=== PATIENT | female | born 1995 | race Two or more races ===

== ENCOUNTER 2023-09-22 11:22 | Emergency (ER) | payer OTHER ==
[~2023-09-22] VITALS: Ht 157.5 cm; Wt 101.6 kg
[2023-09-22] MEDS ORDERED: CYCLOBENZAPRINE HCL 5 MG TABLET PO ONE (12:30)
[2023-09-22] MEDS ORDERED: KETOROLAC TROMETHAMINE 60 MG VIAL IM ONE (12:30)
== END 2023-09-22 14:02 | disposition home or self-care (01) ==
LOC: ER
DX: M62.838 Other muscle spasm (principal)